=== PATIENT | female | born 1935 | race Caucasian/White ===

== ENCOUNTER 2019-07-04 09:59 | Outpatient (CLI) | payer MEDICARE ==
[2019-07-04 10:47] LABS: Estimated GFR-MDRD - POC Greater than 90
--- NOTE | 2019-07-04 13:23 | MRI ---
MRI LUMBAR SPINE WITH AND WITHOUT CONTRAST: DATE: 07/04/2019 HISTORY: 83-year-old female with bilateral lumbar radiculopathy, superimposed on chronic low back pain. COMPARISON: 03/12/2014 TECHNIQUE: Multiple sequences obtained in axial and sagittal planes, pre and post IV injection of gadolinium-bas ed contrast agent. FINDINGS: For the purposes of this report, it will be assumed that there are 5 lumbar-type vertebrae. Vertebral body heights are maintained. T11-12: No high-grade central or high-grade neural foraminal stenosis. T12: New finding of collapse of the T12 vertebral body, with greater than 80% loss of height througho ut its midportion, and bony retropulsion which decreases the AP dimension of the spinal canal by approximately 20-40%, mildly posteriorly displacing the lower portion of the spinal cord, and causing moderate central spinal canal stenosis. Small amount of bone marrow edema centrally. T12-L1:Hyperintense signal throughout much of the widened intervertebral disc space. The T12 bony ret ropulsion causes moderate central spinal canal stenosis. The retropulsion causes at least mild bilateral neural foraminal stenosis. L1: Previously, there was bone marrow edema throughout the vertebral body, with broad mild indentatio ns of the superior and inferior endplates resulting in mild loss of height. The loss of height has slightly increased, but currently there is no marrow edema. L1-2:Mild diffuse disc bulge. Conus medullaris terminates at this level. No central stenosis. No high -grade neural foraminal stenosis. Minimal old bony retropulsion of inferior endplate of L1 without bone marrow edema. L2: New finding of diffuse moderate, broad indentation of inferior endplate associated with bony retr opulsion of the inferior endplate that causes moderate central spinal canal stenosis. No definite bone marrow edema. Milder degree of superior endplate broad indentation, chronic. L2-3:Bony retropulsion of inferior endplate of L2 results in moderate central spinal canal stenosis a nd moderate bilateral neural foraminal stenosis. Widening of disc space. L3: Vertebral body height is maintained with normal bone marrow signal. L3-4:Disc space maintained. Minimal disc bulge. Mild bilateral neural foraminal stenosis. No high-gra de central stenosis. L4: Vertebral body height maintained with no marrow edema. L4-5:Severe bilateral facet DJD results in mild grade 1 anterolisthesis of L4 on L5. Lateral curvatur e results in high-grade at left-sided disc space narrowing. Diffuse disc bulge. Moderate bilateral neural foraminal stenosis. High-grade lateral recess stenosis bilaterally, left worse than right. Int erval worsening of central spinal canal stenosis, now moderate to severe. L5: Vertebral body height maintained with normal marrow signal. L5-S1:Asymmetrically severe left-sided disc space narrowing. Mild to moderate bilateral facet DJD. No right neural foraminal stenosis. Mild left neural foraminal stenosis. No central stenosis. Sacrum: Extensive bone marrow edema with marrow enhancement throughout the bilateral sacral alae. Als o similar involvement of medial aspects of bilateral iliac bones, right side much more extensive than left. IMPRESSION: 1. Acute or subacute sacral insufficiency fractures bilaterally. This also involves bilateral iliac b ones, right worse than left. 2. Old burst fractures of T12 and L2, and to a lesser degree L1. The T12 has the greatest loss of hei ght, vertebra plana, with bony retropulsion. 3. High-grade central spinal canal stenosis at L4-5 due to severe bilateral facet osteoarthrosis.
== END 2019-07-04 10:00 | disposition home or self-care (01) ==
LOC: TBSIIMAG 09:59
PROVIDERS: ATTEND Neurological Surgery
DX: M54.16 Radiculopathy, lumbar region (principal); M84.48XA Pathological fracture, other site, initial encounter for fracture; M48.061 Spinal stenosis, lumbar region without neurogenic claudication; M47.816 Spondylosis without myelopathy or radiculopathy, lumbar region
CPT/HCPCS: 72158; 82565